=== PATIENT | female | born 1955 | race Caucasian/White ===

== ENCOUNTER 2017-06-23 08:17 | Emergency (ER) | payer MEDICAID ==
[~2017-06-23] VITALS: Ht 160 cm; Wt 79.5 kg
[2017-06-23 09:45] VITALS: BP 159/88
[2017-06-23] MEDS: KETOROLAC TROMETHAMINE 30 MG/ML VIAL IM ONE (09:45)
== END 2017-06-23 10:27 | disposition home or self-care (01) ==
LOC: EMS 08:20
DX: S20.211A Contusion of right front wall of thorax, initial encounter (principal); S80.211A Abrasion, right knee, initial encounter; S50.311A Abrasion of right elbow, initial encounter; I10 Essential (primary) hypertension; W01.0XXA Fall on same level from slipping, tripping and stumbling without subsequent striking against object, initial encounter; Y93.01 Activity, walking, marching and hiking; Y92.89 Other specified places as the place of occurrence of the external cause; Y99.8 Other external cause status
CPT/HCPCS: 71046; 96372; 99284; J1885

== ENCOUNTER 2019-09-20 18:08 | Emergency (ER) | payer MEDICARE, MEDICAID ==
[~2019-09-20] VITALS: Ht 157.5 cm; Wt 68.2 kg
[2019-09-20 18:51] VITALS: BP 169/99
== END 2019-09-20 19:02 | disposition home or self-care (01) ==
LOC: EMS 18:12
DX: L03.213 Periorbital cellulitis (principal)

== ENCOUNTER 2019-09-22 10:25 | Emergency (ER) | payer MEDICARE, MEDICAID ==
[~2019-09-22] VITALS: Ht 152.4 cm; Wt 68.2 kg
[2019-09-22] MEDS ORDERED: AMOX1TAB15 PO (10:29)
[2019-09-22] MEDS ORDERED: IBUP-2071 PO (10:29)
[2019-09-22] MEDS ORDERED: ERYT3.5O8 OU (10:29)
[2019-09-22] MEDS ORDERED: ONDANSETRON HCL 4 MG/2 ML VIAL IVP ONE (11:45)
[2019-09-22] MEDS ORDERED: MORPHINE SULFATE 4 MG/ML SYRINGE IVP ONE (11:45)
[2019-09-22 12:27] LABS: BASOPHILS % (AUTO) 0.5 % (0.0-2.0); EOSINOPHILS % (AUTO) 0.5 % (1.0-6.0); HEMATOCRIT 39.6 % (36-46); LYMPHOCYTES # (AUTO) 1.9 K/uL (1.0-4.8); LYMPHOCYTES % (AUTO) 14.6 % (22.0-44.0); MEAN CORPUSCULAR HEMOGLOBIN 30.7 pg (26.0-34.0); MEAN CORPUSCULAR HGB CONC 32.8 G/dL (31.0-37.0); MEAN CORPUSCULAR VOLUME 94 fL (80-100); MONOCYTES % (AUTO) 7.7 % (2.0-9.0); NEUTROPHILS # (AUTO) 10.1 K/uL (1.8-7.7); NEUTROPHILS % (AUTO) 76.7 % (40.0-70.0); PLATELET COUNT (AUTO) 240 K/uL (150-450); RED BLOOD CELL COUNT(AUTO) 4.23 MIL/uL (4.00-5.20)
[2019-09-22] MEDS ORDERED: PROPARACAINE HCL 0.5% 15 ML OPHTHALMIC SOLUTION OU ONE (12:30)
[2019-09-22 12:43] LABS: ALANINE AMINOTRANSFERASE 19 U/L (12-78); ALKALINE PHOSPHATASE 95 U/L (46-116); ANION GAP 13 mmol/L (8-16); ASPARTATE AMINOTRANSFERASE 19 U/L (15-37); BILIRUBIN,TOTAL 0.4 mg/dL (0.1-1.0); CALCIUM, TOTAL 9.5 mg/dL (8.8-10.5); CARBON DIOXIDE 26 mmol/L (22-29); CHLORIDE 103 mmol/L (98-107); CREATININE 0.68 mg/dL (0.60-1.30); GLOMERULAR FILTR. RATE CALC > 60 mL/min (>60); GLUCOSE,RANDOM 101 mg/dL (70-110); SODIUM SERUM 142 mmol/L (136-145); TOTAL PROTEIN, SERUM 8.4 g/dL (6.4-8.2); UREA NITROGEN, BLOOD 11 mg/dL (7-18)
[2019-09-22 12:48] LABS: POTASSIUM 2.9 mmol/L (3.5-5.1)
[2019-09-22] MEDS ORDERED: SODIUM CHLORIDE 0.9% 100 ML ONE (13:12)
[2019-09-22] MEDS ORDERED: IOVERSOL 320 MG/ML 100 ML VIAL ONE (13:12)
[2019-09-22] MEDS ORDERED: POTASSIUM CHLORIDE 20 MEQ ER TABLET PO ONE (15:00)
[2019-09-22 16:43] VITALS: BP 143/78
== END 2019-09-22 18:41 | disposition home or self-care (01) ==
LOC: EMS 10:33
DX: L03.213 Periorbital cellulitis (principal); E78.00 Pure hypercholesterolemia, unspecified
CPT/HCPCS: 36415; 70487; 80053; 85025; 96374; 96375; 99285; J2270; J2405; J7050; Q9967

== ENCOUNTER 2021-12-18 10:45 | Emergency (ER) | payer MEDICARE, MEDICAID ==
[~2021-12-18] VITALS: Ht 160 cm; Wt 95.5 kg
[~2021-12-18 10:45] MED LIST: AMOX1TAB15 PO; ERYT3.5O8 OU; IBUP-2071 PO
[2021-12-18 11:08] VITALS: BP 164/86
[2021-12-18] MEDS ORDERED: LIDOCAINE 5% TRANSDERMAL PATCH TD ONE (12:30)
[2021-12-18] MEDS ORDERED: IBUP-2070 PO (12:44)
[2021-12-18] MEDS ORDERED: CYCL-448 PO (12:44)
== END 2021-12-18 13:04 | disposition home or self-care (01) ==
LOC: EMS 10:45
DX: M54.41 Lumbago with sciatica, right side (principal); E78.00 Pure hypercholesterolemia, unspecified; I10 Essential (primary) hypertension
CPT/HCPCS: 99283

== ENCOUNTER 2023-07-18 09:24 | Emergency (ER) | payer MEDICARE, MEDICAID ==
[~2023-07-18] VITALS: Ht 149.9 cm; Wt 45.5 kg
[~2023-07-18 09:24] MED LIST changes: +CYCL-448 PO; +IBUP-1492 PO; +IBUP-1493 PO; -IBUP-2071 PO
[2023-07-18] MEDS ORDERED: LOSA-382 PO (09:31)
[2023-07-18] MEDS ORDERED: ATOR20TA65 PO (09:31)
[2023-07-18] MEDS ORDERED: METF-446 PO (09:31)
[2023-07-18] MEDS ORDERED: AMOX1TAB16 PO (09:36)
[2023-07-18] MEDS ORDERED: ACET-2080 PO (09:36)
[2023-07-18] MEDS: ACETAMINOPHEN/CODEINE 300-30 MG TABLET PO ONE (09:43)
[2023-07-18] MEDS: CEPHALEXIN MONOHYDRATE 500 MG CAPSULE PO ONE (09:43)
[2023-07-18] MEDS: KETOROLAC TROMETHAMINE 60 MG/2 ML VIAL IM ONE (09:43)
[2023-07-18 10:20] VITALS: BP 175/99; PULSE 99; RESP 18
== END 2023-07-18 10:35 | disposition home or self-care (01) ==
LOC: EMS 09:26
DX: K05.10 Chronic gingivitis, plaque induced (principal); E11.65 Type 2 diabetes mellitus with hyperglycemia; E78.00 Pure hypercholesterolemia, unspecified; I10 Essential (primary) hypertension
CPT/HCPCS: 99283; 82962; 96372; J1885

== ENCOUNTER 2025-02-07 10:58 | Emergency (ER) | payer MEDICARE, MEDICAID ==
[~2025-02-07] VITALS: Ht 152.4 cm; Wt 81.0 kg
[~2025-02-07 10:58] MED LIST changes: +ACET-2080 PO; +AMOX-457 PO; -AMOX1TAB15 PO; +ATOR20TA65 PO; -CYCL-448 PO; -ERYT3.5O8 OU; -IBUP-1492 PO; -IBUP-1493 PO; +LOSA-382 PO; +METF-446 PO
[2025-02-07 11:08] VITALS: TEMP 97.9
[2025-02-07] MEDS: KETOROLAC TROMETHAMINE 30 MG/ML VIAL IM ONE (12:40)
[2025-02-07 16:00] VITALS: BP 129/80; PULSE 70; RESP 15; O2SAT 98
[2025-02-07] MEDS ORDERED: ACET-3385 PO (16:47)
== END 2025-02-07 16:44 | disposition home or self-care (01) ==
LOC: EMS 11:02
DX: M17.11 Unilateral primary osteoarthritis, right knee (principal); E11.9 Type 2 diabetes mellitus without complications; E78.00 Pure hypercholesterolemia, unspecified; I10 Essential (primary) hypertension; Z79.899 Other long term (current) drug therapy
CPT/HCPCS: 99283; 73562; 96372; J1885